=== PATIENT | male | born 1980 | race African-American/Black ===

== ENCOUNTER 2024-11-29 12:10 | Day surgery (SDC) | payer OTHER, MEDICARE, MEDICAID, SELFPAY ==
--- NOTE | 2024-11-27 07:00 | EKG_ITS ---
[facility] Test Date: 2024-11-27 Pat Name: Monique ALEXANDER Department: Room: - Gender: Male [employer]: [facility] : 1980 Requested By: Bharath Carrizales Order Number: [id number] Reading MD: Bharath Carrizales Measurements Intervals [place] Rate: 83 P: 62 NH: 160 QRS: 29 QRSD: 89 T: 53 QT: 365 QTc: 431 Interpretive Statements SINUS RHYTHM No previous ECG available for comparison /[id number]
[2024-11-27 07:54] VITALS: BMI 34.2
[2024-11-27 09:32] LABS: Alanine Aminotransferase 84 U/L (10-49); Albumin, Serum 4.6 gm/dL (3.5-5.0); Albumin/Globulin Ratio 1.2 (1.2-2.2); Alkaline Phosphatase 94 U/L (46-116); Anion Gap 8 (7-16); Aspartate Amino Transferase 55 U/L (0-34); BUN/Creatinine Ratio 12 Ratio (12-20); Bilirubin,Total 0.6 mg/dL (0.3-1.2); Blood Urea Nitrogen 12 mg/dL (9-23); Calcium 9.8 mg/dL (8.3-10.6); Calcium (Corrected) 9.8 mg/dL (8.5-10.1); Carbon Dioxide 26.7 mMol/L (20.0-31.0); Chloride 106 mMol/L (98-107); Estimated Creatinine Clearance 126.8 mL/min (>60); Globulin 3.7 gm/dL (2.3-3.5); Glucose 107 mg/dL (74-106); Osmolality,Calculated 280 (275-295); Sodium 141 mMol/L (136-145); Total Protein 8.3 gm/dL (5.7-8.2); eGFR > 60 See Note
[2024-11-29] VITALS (10 sets, daily range): BP systolic 109–143; BP diastolic 56–89; PULSE 62–78; RESP 12–15; TEMP 36.4–36.8; O2SAT 96–100; BMI 35.9
[2024-11-29] MEDS: OXYMETAZOLINE NAS SPRY 0.05% 15 ML BTL NASAL (13:30)
[2024-11-29] MEDS: RINGERS LACTATED 1000 ML 1,000 ML 20 ML IV (13:32)
--- NOTE | 2024-11-29 14:58 | PD.SUROPNT ---
Date of Procedure 11/29/24 Pre Op Diagnosis Nasal septal deviation with obstruction Left inferior turbinate hypertrophy Post Op Diagnosis Nasal septal deviation with obstruction Left inferior turbinate hypertrophy Procedure Intranasal septoplasty Submucous resection of the left inferior turbinate Findings Septal cartilage was severely deviated and traumatized from prior fractures with the convexity blocking the right nares. There is deviation of the perpendicular plate to the right side posteriorly and superiorly. Left inferior turbinate was enlarged. Procedure Description This is a 44-year-old male with nasal congestion with findings as described above. Has been treated unsuccessfully with medications and wished to proceed with surgical intervention. The risk were discussed in detail as well as anticipated outcomes. Patient was transferred to the operative suite where he was anesthetized per LMA. Timeout was performed. The caudal end of the septum was then injected with 1% lidocaine with 1 100,000 dilution heparin as well as the left inferior turbinate approximately 5 cc total were used. Caudal rim incision was then made on the left side of the septum and then trying to elevate the mucosa was very friable and just tore into pieces. Dissection was not pursued further on this side. A separate caudal incision was then made on the right side being careful not to create any tears on the right side. I Was able to successfully elevate the mucosa on this side off of the septal cartilage, it was as described above. I worked my way back the perpendicular plate and from the quadrangular cartilage and remove the deviated portion of the perpendicular plate with double-action scissors and Korey forceps. There is a spur of the vomer into the right side of is able to fracture this back into the midline with the caudal elevator. A portion of the cartilage was trimmed and then the septal cartilage repositioned back in the midline. The vertical component of the quadrangular cartilage was kept intact. This allowed the septum to be near the midline. The left inferior turbinate was then reduced in a submucosal plane with a 2.9 mm turbinate shaver blade. Dissection was formed on insertion and withdrawal. The entry site was cauterized with suction cautery. The rim incision was closed with 4-0 plain gut suture. Meneses splints were trimmed and coated with double antibiotic ointment and inserted and sutured in place with silk suture. Patient was awakened and taken recovery room in stable condition Anesthesia other (General Per LMA) Pathology / specimen None Estimated Blood Loss 5 Surgeon Bharath Milan DO Surgical Staff Operation Date: 11/29/24 14:30 Case Staff Anesthesiologist: Ruy Haas
[2024-11-29] MEDS: fentaNYL CIT INJ 50 mCg/ML AMP 2ML 25 MCG IV ×2 (15:18→15:37)
--- NOTE | 2024-11-29 15:45 | SUR.PHASEI ---
1456: Pt received in [facility]. Report from Guru DELGADO and Lorin BARBER. Pt groggy, but responsive. Resp even, unlabored. VS stable. Nasal bridle dry, clean, intact. No c/o pain. 1518: Pt more alert. Has c/o pain to forehead, headache. Rates pain level 8/10. Resp even, unlabored. VS stable. Pain medication given per order. 1526: Pt states pain level coming down. Rates pain level 6/10. Resp even, unlabored. VS stable. Nasal bridle remains dry, clean, intact.
--- NOTE | 2024-11-29 15:50 | SUR.PHASEII ---
1537: Pt stated pain level remains at 6/10. Resp even, unlabored. VS stable. Pain medication given per order.
--- NOTE | 2024-11-29 17:08 | SUR.PHASEII ---
1555: Pt has been resting quietly. Stated pain level is down and more tolerable at 3/10. Resp even, unlabored. VS stable. Ice pack provided for forehead. Nasal bridle has small amount of bleeding. 1615: Pt states he is much more comfortable. Is sitting up tolerating po fluids with no difficulty swallowing and no n/v. 1630: Pt fully awake, oriented x3. VS stable. Nasal bridle has small amount of bleeding. Pt assisted to restroom. Ambulation steady. Pt and stated understanding of discharge instructions. Pt also instructed to slat pickler his prescription at [facility] in [place]. Pt discharged from [facility] in stable condition.
== END 2024-11-29 16:30 | disposition home or self-care (01) ==
PROVIDERS: Anesthesiology; Referring Provider Otolaryngology; Visit Provider Otolaryngology
PROC: (CPT 30520; principal; 2024-11-29 14:15)
DX: J34.2 Deviated nasal septum (principal); J34.3 Hypertrophy of nasal turbinates; Z01.810 Encounter for preprocedural cardiovascular examination
CPT/HCPCS: 30520; 30140; 36415; 80053; 93005; A4217; A4649; J0690; J1100; J2704; J2765; J3010; J3490; J7040; J7120; A9270